=== PATIENT | male | born 1965 | race Asian ===

== ENCOUNTER 2023-05-24 08:20 | Day surgery (SDC) | payer OTHER, SELFPAY ==
[2023-05-24] VITALS (7 sets, daily range): BP systolic 85–189; BP diastolic 52–116; PULSE 59–82; RESP 15–24; TEMP 36.4–36.7; O2SAT 97–99; BMI 26.2
[2023-05-24] MEDS: LACTATED RINGERS 1,000 ML 42 ML IV (08:51)
--- NOTE | 2023-05-24 09:04 | PM.HP.1 ---
History of Present Illness History of Present Illness Date Patient Seen: 05/24/23 Chief complaint: Colonoscopy Narrative: Seconds screening colonoscopy with last procedure over 10 years ago PFSH Social History household members: spouse Smoking Status: Never smoker alcohol intake: never Meds Home Medications and Allergies Home Medications Medication Instructions Recorded Confirmed Type No Known Home Medications 05/24/23 05/24/23 History Allergies Allergy/AdvReac Type Severity Reaction Status Date / Time No Known Drug Allergies Allergy Verified 05/24/23 08:36 Exam Vital Signs (past 8 hours): - 05/24/23 08:40 05/24/23 08:50 Temperature 97.8 F Pulse Rate 82 Respiratory Rate 24 Blood Pressure 189/116 H 175/107 H Pulse Oximetry 98 Oxygen Delivery Method Room Air Oxygen Delivery Method Room Air Narrative Exam Narrative: Oropharynx free of lesions Chest clear to auscultation percussion Cardiac exam reveals no S3 or murmur Assessment & Plan Assessment & Plan narrative: Need for screening colonoscopy. Risks, benefits, alternatives have been explained.
--- NOTE | 2023-05-24 09:05 | P.OP.COLON_ITS ---
Operative Date/Time/Diagnoses Date of procedure: 05/24/23 Pre-op diagnosis: See indication and findings Procedure & Clinicians Study performed: Colonoscopy Indications: Screening Surgeon: Ramón Gallo Procedure Notes Procedure in detail: After informed consent was obtained the patient was placed in left lateral d ecubitus position. The video colonoscope was introduced the rectum slowly advanced to the cecum. Preparation was good. On slow withdrawal mucosa was carefully examined. The scope was removed. The patient tolerated procedure well. Blood loss none Complications none Sedation mac Findings 1. Normal colonoscopy to cecum Patient should have follow-up colonoscopy in 10 years
--- NOTE | 2023-05-24 11:33 | SUR.PHASEII ---
Spent time with patient and then regarding patient need to follow up with his PCP for his significantly elevated BP. Pt stated a negative reaction to Lisinopril (cough) but discussed many other types of BP medications and risks associated with untreated hypertension
== END 2023-05-24 10:50 | disposition home or self-care (01) ==
PROVIDERS: PCP Student in an Organized Health Care Education/Training Program; Referring Provider Internal Medicine Gastroenterology; Visit Provider Internal Medicine Gastroenterology
PROC: 0DJD8ZZ Inspection of Lower Intestinal Tract, Via Natural or Artificial Opening Endoscopic (ICD-10-PCS; CPT 45378; principal; 2023-05-24 09:30)
DX: Z12.11 Encounter for screening for malignant neoplasm of colon (principal)
CPT/HCPCS: 45378; J2704